=== PATIENT | female | born 1980 | race Caucasian/White ===

== ENCOUNTER 2024-08-31 11:05 | Emergency (ER) | payer BC ==
[~2024-08-31] VITALS: Ht 165.1 cm; Wt 94.3 kg
[2024-08-31 11:10] VITALS: PULSE 58; RESP 17; TEMP 97.8; O2SAT 98
[2024-08-31] MEDS ORDERED: SODIUM CHLORIDE 0.9% 1000ML 1,000 ML ONE (11:45)
[2024-08-31] MEDS: SODIUM CHLORIDE 0.9% 1000ML 1,000 ML IV SCH (12:00)
[2024-08-31] MEDS: ONDANSETRON HCL INJ 2MG/ML 2ML 2 MG/ML VIAL IV STA (12:00)
[2024-08-31] MEDS: KETOROLAC TROMETHAMINE 30 MG/ML VIAL IV STA (12:01)
[2024-08-31] MEDS ORDERED: ONDANSETRON ODT4 MG PO (12:08)
== END 2024-08-31 13:15 | disposition home or self-care (01) ==
LOC: FSED 11:13
DX: I10 Essential (primary) hypertension (principal); R10.9 Unspecified abdominal pain; R11.2 Nausea with vomiting, unspecified; R51.9 Headache, unspecified
CPT/HCPCS: 71045; 80053; 82553; 84484; 85025; 93005; 99284; J1885; J2405; J7030

== ENCOUNTER 2025-03-27 16:05 | Observation (INO) | payer BC ==
[~2025-03-27] VITALS: Ht 165.1 cm; Wt 95.3 kg
[~2025-03-27 16:05] MED LIST: ONDANSETRON ODT4 MG PO
[2025-03-27] MEDS ORDERED: KETOROLAC TROMETHAMINE 30 MG/ML VIAL IV STA (16:22)
[2025-03-27] MEDS ORDERED: IOPAMIDOL 370 MG/ML 100 ML INFUS..BTL INJ ONE (16:28)
[2025-03-27] MEDS: Morphine 4mg INJECTION 4 MG/ML INJ IV ONE (16:48)
[2025-03-27] MEDS: SODIUM CHLORIDE 0.9% 1000ML 1,000 ML IV ONE (16:48)
[2025-03-27] MEDS: ONDANSETRON HCL INJ 2MG/ML 2ML 2 MG/ML VIAL IV STA (16:48)
[2025-03-27 18:52] VITALS: PULSE 73; RESP 16; TEMP 98.5
[2025-03-27 22:10] VITALS: PULSE 86; RESP 16; O2SAT 98
[2025-03-27 22:19] VITALS: BP 144/80; PULSE 93; RESP 21; TEMP 103.1; O2SAT 99
[2025-03-27 22:23] VITALS: BP 144/80; PULSE 93; RESP 21; TEMP 103.1; O2SAT 99
[2025-03-27] MEDS ORDERED: ACETAMINOPHEN 325 MG TAB PO PRN (23:15)
[2025-03-27] MEDS: Morphine 4mg INJECTION 4 MG/ML INJ IV PRN (23:22)
[2025-03-27] MEDS: ONDANSETRON HCL INJ 2MG/ML 2ML 2 MG/ML VIAL IV PRN (23:22)
[2025-03-27] MEDS: SODIUM CHLORIDE 0.9% 1000ML 1,000 ML IV SCH (23:22)
[2025-03-28] VITALS (12 sets, daily range): BP systolic 125–135; BP diastolic 71–92; PULSE 70–90; RESP 16–20; TEMP 97.6–102.7; O2SAT 94–100
[2025-03-28] MEDS ORDERED: LEVOTHYROXINE50 MCG PO (01:28)
[2025-03-28] MEDS ORDERED: PROZAC20 MG PO (01:28)
[2025-03-28] MEDS ORDERED: BUPROPION XL150 MG PO (01:28)
[2025-03-28] MEDS ORDERED: NALTREXONE HCL50 MG PO (01:28)
[2025-03-28] MEDS ORDERED: FENTANYL CITRATE/PF 100MCG/2 ML INJ ONE (10:44)
[2025-03-28] MEDS ORDERED: LIDOCAINE HCL 2% LOCAL INJ 5 ML SDV VIAL INJ ONE (10:44)
[2025-03-28] MEDS ORDERED: SUCCINYLCHOLINE CHLORIDE 20 MG/ML 10ML VIAL ONE (10:44)
[2025-03-28] MEDS ORDERED: PROPOFOL IV EMULSION 10 MG/ML 20 ML VIAL ONE (10:44)
[2025-03-28] MEDS ORDERED: ROCURONIUM BROMIDE 1 ML IV ONE (10:44)
[2025-03-28] MEDS ORDERED: KETOROLAC TROMETHAMINE 30 MG/ML VIAL ONE (11:04)
[2025-03-28] MEDS ORDERED: METOCLOPRAMIDE HCL 10 MG/2ML VIAL ONE (11:04)
[2025-03-28] MEDS ORDERED: DEXAMETHASONE SOD PHOS INJ 4 MG/ML SDV ONE (11:04)
[2025-03-28] MEDS ORDERED: ONDANSETRON HCL INJ 2MG/ML 2ML 2 MG/ML VIAL ONE (11:04)
[2025-03-28] MEDS ORDERED: Morphine 10mg syringe 10 MG/ML INJ ONE (11:32)
[2025-03-28] MEDS ORDERED: SUGAMMADEX SODIUM 200 MG/2 ML VIAL IV ONE (11:35)
[2025-03-28] MEDS ORDERED: HYDROMORPHONE 1MG/1ML INJ IV PRN (12:00)
[2025-03-28] MEDS: PIPERACILLIN/TAZOBACTAM 3.375 GM VIAL ONE (12:06)
[2025-03-29] VITALS: BP 167/86; PULSE 65; RESP 18; TEMP 98.4; O2SAT 100
[2025-03-29] MEDS: KETOROLAC TROMETHAMINE 30 MG/ML VIAL IV PRN (00:21)
[2025-03-29 04:00] VITALS: BP 146/87; PULSE 60; RESP 18; TEMP 97.9; O2SAT 100
[2025-03-29 06:04] LABS: BASOPHILS % 0.0 % (0.0-1.0); EOSINOPHILS % 0.1 % (0.0-6.0); LYMPHOCYTES % 8.4 % (18.0-39.1); MONOCYTES % 5.4 % (4.4-11.3); NEUTROPHILS % 85.7 % (38.7-80.0); RED CELL DISTRIBUTION WIDTH 11.9 % (11.7-14.4)
[2025-03-29 06:33] LABS: EST GLOMERULAR FILTRATION RATE 111.0 ML/MIN (>=60)
[2025-03-29 07:56] VITALS: BP 148/85; PULSE 66; RESP 18; TEMP 98.2; O2SAT 100
[2025-03-29 08:02] VITALS: BP 148/85; PULSE 66; RESP 18; TEMP 98.2; O2SAT 100
[2025-03-29] MEDS: HYDROCODONE/APAP 7.5MG-325MG 1 EA TAB PO PRN (08:04)
[2025-03-29 11:38] VITALS: BP 138/78; PULSE 87; RESP 18; TEMP 98.3; O2SAT 100
[2025-03-29] MEDS: SODIUM CHLORIDE 0.9% 1000ML 1,000 ML IV SCH (14:00)
[2025-03-29 16:14] VITALS: BP 144/88; PULSE 62; RESP 16; TEMP 98.1; O2SAT 100
== END 2025-03-29 20:00 | disposition home or self-care (01) ==
LOC: FSED 16:09 → ERHOLD 19:33 → MED/SURG3 22:25
PROVIDERS: ADMIT Surgery; ATTEND Surgery
DX: K35.80 Unspecified acute appendicitis (principal); E03.9 Hypothyroidism, unspecified; F32.A Depression, unspecified; Z98.84 Bariatric surgery status; Z87.891 Personal history of nicotine dependence
CPT/HCPCS: 36415; 74177; 80048; 80076; 81003; 81025; 85025; 88304; 94799; 96374; 96375; 99252; 99284; G0378; J0330; J1100; J1885; J2003; J2270; J2405; J2543; J2765; J7030; Q9967